=== PATIENT | female | born 1945 | race Caucasian/White ===

== ENCOUNTER → 2016-08-23 | Outpatient (CLI) | payer OTHER ==
[~2016-08-23] VITALS: Ht 160 cm; Wt 66.7 kg
[~2016-08-23] MED LIST: DELZICOL400 M1 PO; ELMIRON100 MG PO; FLAGYL500 MG PO; FLOMAX0.4 MG PO; LISINOPRIL40 MG PO; MOTRIN600 MG PO; PERCOCET 5/31 TABLET PO; PRAVASTATIN SOD40 MG PO; PREMPRO 0.31 TABLET PO; PROCTOZONE-HC30 GM PR; ZOFRAN ODT4 MG PO; ZOLPIDEM TARTRAT5 MG PO
== END | disposition home or self-care (01) ==
LOC: AMB 10:21
PROC: 0DJ08ZZ Inspection of Upper Intestinal Tract, Via Natural or Artificial Opening Endoscopic (ICD-10-PCS; principal; 2016-08-23)
DX: R13.10 Dysphagia, unspecified (principal); I10 Essential (primary) hypertension; E78.5 Hyperlipidemia, unspecified; F41.8 Other specified anxiety disorders; Z82.49 Family history of ischemic heart disease and other diseases of the circulatory system; Z82.69 Family history of other diseases of the musculoskeletal system and connective tissue

== ENCOUNTER → 2016-11-30 | Outpatient (CLI) | payer MEDICARE, OTHER | END | disposition home or self-care (01) | LOC: CDC 10:58 | DX: N20.0 Calculus of kidney (principal); I44.4 Left anterior fascicular block | CPT/HCPCS: 93000 ==